=== PATIENT | female | born 1990 | race Hispanic/Latino ===

== ENCOUNTER 2020-12-23 07:33 | Outpatient (CLI) | payer OTHER | END 2020-12-23 07:34 | disposition home or self-care (01) | LOC: BICULT 07:33 | PROVIDERS: ATTEND Nurse Practitioner | DX: O09.92 Supervision of high risk pregnancy, unspecified, second trimester (principal); Z3A.24 24 weeks gestation of pregnancy | CPT/HCPCS: 76805 ==